=== PATIENT | male | born 1990 ===

== ENCOUNTER 2025-01-12 16:52 | Outpatient (CLI) | payer SELFPAY | END 2025-01-12 16:53 | disposition home or self-care (01) | PROVIDERS: Visit Provider Advanced Practice Midwife | DX: R76.0 Raised antibody titer (principal) | CPT/HCPCS: 36415; 86850; 86900; 86901 ==

== ENCOUNTER 2025-01-13 13:01 | Outpatient (CLI) | payer SELFPAY ==
[2025-01-13 13:06] LABS: Lab Add On Test DONE
== END 2025-01-13 13:02 | disposition home or self-care (01) ==
LOC: LBO 13:01
PROVIDERS: Advanced Practice Midwife; Visit Provider Obstetrics & Gynecology
DX: R76.0 Raised antibody titer (principal)
CPT/HCPCS: 36415; 86870; 86880; 86900; 86905